=== PATIENT | male | born 1985 | race Caucasian/White ===

== ENCOUNTER 2017-03-09 22:36 | Emergency (ER) | payer MEDICAID ==
[~2017-03-09] VITALS: Ht 180.3 cm; Wt 72.3 kg
[~2017-03-09 22:36] MED LIST: AMLO5TAB2 PO; AMOXICILLIN PO; AMPH20TA2 PO; BACTRIM PO; CYCL5TAB PO; EPIN0.3P3 IM; ESZO2TAB34 PO; HYDR-3307 PO; KALETRA PO; LAMO25TA5 PO; LAMO25TB2 PO; LORA1TAB PO; LOSA25TA5 PO; NIFE20CA PO; OMEP20TA62 PO; QUET300T5 PO; SERT50TA5 PO; SOMA PO; SUMA100T3 PO; SUMA25TA3 PO; TRIAM
[2017-03-09 22:52] VITALS: BP 139/104
[2017-03-10] MEDS ORDERED: OMNIPAQUE 350 MG/ML, 100ML BOTTLE ONE (00:17)
[2017-03-10] MEDS ORDERED: MORPHINE SULFATE 4 MG/ML, 1ML IVPush PRN (00:30)
[2017-03-10] MEDS ORDERED: KETOROLAC 30 MG/1 ML IVPush ONE (00:30)
[2017-03-10] MEDS ORDERED: ONDANSETRON 2MG/ML, 2ML IVPush ONE (00:30)
[2017-03-10] MEDS ORDERED: SODIUM CHLORIDE 0.9% 1,000ML IVBOLUS ONE (00:30)
[2017-03-10] MEDS ORDERED: SODIUM CHLORIDE FLUSH 10ML SYR IVF ONE (00:30)
[2017-03-10] MEDS ORDERED: ONDANSETRON 2MG/ML, 2ML ONE (00:59)
[2017-03-10] MEDS ORDERED: MORPHINE SULFATE 4 MG/ML, 1ML ONE (00:59)
[2017-03-10] MEDS ORDERED: KETOROLAC 30 MG/1 ML ONE (01:00)
[2017-03-10 01:10] LABS: ASPARTATE AMINO TRANSFERASE 24 U/L (15-37); BLOOD UREA NITROGEN 14 mg/dL (7-18)
== END 2017-03-10 03:08 | disposition home or self-care (01) ==
LOC: ED 23:59
DX: R10.84 Generalized abdominal pain (principal); R11.2 Nausea with vomiting, unspecified; R19.7 Diarrhea, unspecified; G40.909 Epilepsy, unspecified, not intractable, without status epilepticus; F17.200 Nicotine dependence, unspecified, uncomplicated; F15.10 Other stimulant abuse, uncomplicated
CPT/HCPCS: 36415; 74177; 80053; 83690; 85025; 96361; 96374; 96375; 99285; J1885; J2405; J7030; Q9967

== ENCOUNTER 2017-03-23 11:26 | Emergency (ER) | payer MEDICAID ==
[~2017-03-23] VITALS: Ht 180.3 cm; Wt 75.0 kg
[2017-03-23] MEDS ORDERED: LAMO25TA PO (11:41)
[2017-03-23 12:29] LABS: BLOOD UREA NITROGEN 10 mg/dL (7-18)
[2017-03-23 15:18] VITALS: BP 124/83
== END 2017-03-23 15:21 | disposition home or self-care (01) ==
LOC: ED 11:42
DX: R07.89 Other chest pain (principal); F41.1 Generalized anxiety disorder; F31.9 Bipolar disorder, unspecified
CPT/HCPCS: 36415; 71010; 80048; 82040; 84484; 85025; 93005